=== PATIENT | female | born 1995 | race Caucasian/White ===

== ENCOUNTER 2019-06-18 18:31 | Emergency (ER) | payer OTHER ==
[~2019-06-18] VITALS: Ht 165.1 cm; Wt 154.2 kg
[2019-06-18] MEDS ORDERED: LIDODERM1 EACH TOP (20:26)
[2019-06-18] MEDS ORDERED: IBUPROFEN 600600 M1 PO (20:26)
[2019-06-18] MEDS ORDERED: TRAMADOL 50 MG50 MG PO (20:26)
[2019-06-18 20:35] VITALS: BP 151/90
== END 2019-06-18 20:36 | disposition home or self-care (01) ==
LOC: M.ERS 18:31
DX: M54.5 Low back pain (principal); Z90.49 Acquired absence of other specified parts of digestive tract; Z90.89 Acquired absence of other organs

== ENCOUNTER 2019-06-27 20:25 | Emergency (ER) | payer OTHER ==
[~2019-06-27] VITALS: Ht 165.1 cm; Wt 154.2 kg
[~2019-06-27 20:25] MED LIST: IBUPROFEN 600600 M1 PO; LIDODERM1 EACH TOP; TRAMADOL 50 MG50 MG PO
[2019-06-27] MEDS ORDERED: MELOXICAM15 MG PO (20:44)
[2019-06-27] MEDS ORDERED: ROBAXIN 750 MG750 MG PO (20:44)
[2019-06-27 20:54] VITALS: BP 131/94
== END 2019-06-27 20:55 | disposition home or self-care (01) ==
LOC: M.ERS 20:25
DX: S39.82XA Other specified injuries of lower back, initial encounter (principal); Z90.49 Acquired absence of other specified parts of digestive tract; Z90.89 Acquired absence of other organs; W18.39XA Other fall on same level, initial encounter; Y92.89 Other specified places as the place of occurrence of the external cause; Y93.89 Activity, other specified; Y99.8 Other external cause status